=== PATIENT | male | born 1995 | race Caucasian/White ===

== ENCOUNTER 2022-09-25 21:10 | Outpatient (CLI) | payer OTHER, SELFPAY | END 2022-09-25 21:11 | disposition home or self-care (01) | PROVIDERS: Visit Provider Internal Medicine | DX: G47.33 Obstructive sleep apnea (adult) (pediatric) (principal) | CPT/HCPCS: 95811 ==

== ENCOUNTER 2023-07-11 09:05 | Outpatient (CLI) | payer OTHER, SELFPAY | END 2023-07-11 09:06 | disposition home or self-care (01) | PROVIDERS: PCP Internal Medicine; Visit Provider Internal Medicine | DX: I10 Essential (primary) hypertension (principal) | CPT/HCPCS: 80053; 80061; 84443 ==

== ENCOUNTER 2024-04-16 10:08 | Outpatient (CLI) | payer OTHER, SELFPAY ==
--- OUTSIDE RECORDS SUMMARY | 2024-04-16 10:11 | XMS_ITS | Clinical Summary ---
Author Organization [employer] [facility] Address [place], [place] [address] Care Team Providers Care Turnstile Collector Name Role Phone Pcp, No Primary Care Provider Unavailabl e Allergies Active Allergy Reactions Criticality Noted Date Comments Bee Venom Protein (Honey Bee) Edema 2022 Medications Medication Sig Dispensed Refills Start Date End Date Status durable medical equipment (DME)Indications:Hyp ertension Blood pressure cuff and machine. 1 Each 08/04/2022 Active lisinopriL (PRINIVIL; ZESTRIL) 10 mg tabletIndications:Hy pertension TAKE 1 TABLET(10 MG) BY MOUTH EVERY DAY 30 Tablet 10/03/2022 Active CPAPIndications:QUYEN (obstructive sleep apnea) CPAP machine for home use at pressure 14 cmw, full face mask x1/3month with a full face cushion x1/mo 1 Each 11 10/04/2022 Active overnight oximetryIndications: QUYEN (obstructive sleep apnea),Nocturnal hypoxemia For home use. On Room Air yes; On Oxygen no if yes @LPM; On CPAP yes; On BiPAP no 1 Each 10/04/2022 Active Active Problems Problem Noted Date Diagnosed Date QUYEN 08/24/2022 AHi- 40 10/04/2022 Nocturnal hypoxemia 10/04/2022 Morbid obesity with BMI of 50.0-59.9, adult 07/13 Hypertension 08/04/2022 Immunizations Name Administration Dates Next Due COVID-19 vaccine ([employer] NTech 30mcg/0.3mL) 12YO+ BIVALENT PF, MDV 08/04/2022 Family History Medical History Relation Name Comments Hypertension Father Hypertension Mother Relation Name Status Comments Father Mother Social History Tobacco Use Types Packs/Day Years Used Date Smoking Tobacco: Former Cigarettes 0.5 12 2011 Passive Smoke Exposure: Never Smokeless Tobacco: Never Tobacco Cessation:Counseling Given: Not Answered Alcohol Use Standard Drinks/Week Comments Yes 0 (1 standard drink = 0.6 oz pur e alcohol) daily, rum PHQ-2 Answer Date Recorded PHQ-2 TOTAL SCORE 2 08/04/2022 Social Connections Answer Date Recorded Frequency of Communication with Friends and Fami ly Not on file 08/04/2022 Sex and Gender Information Value Date Recorded Sex Assigned at Not on file Gender Identity Not on file Sexual Orientation Not on file Obstetrics History Last Filed Vital Signs Vital Sign Reading Time Taken Comments Blood Pressure 147/90 08/04/2022 11:22 AM MEDICAL AUDITOR Pulse 90 08/04/2022 11:17 AM MEDICAL AUDITOR Temperature - - Respiratory Rate - - Oxygen Saturation 95% 08/04/2022 11: 17 AM MEDICAL AUDITOR Inhaled Oxygen Concentration - - Weight 216.2 kg (476 lb 9.6 oz) 023 11:17 AM MEDICAL AUDITOR Height 196.5 cm (6' 5.36) 08/04/2022 1 1:17 AM MEDICAL AUDITOR Body Mass Index 55.99 08/04/2022 11:17 AM MEDICAL AUDITOR Plan of Treatment Health Maintenance Due Date Last Done Comments Tdap 2004 HIV for age 15-65 2008 Hepatitis C screening for age 18-79 2011 Tetanus booster 2013 BMI (ht and wt on same day) for age 18+ 08/04/2023 08/04/2022 Depression screening for age 12+ 08/04/2023 08/04/2022 COVID-19 vaccine series (2023- season) 2024 08/04/2022, 05/16/2021, 10/19/2020, Additional history exists Influenza for age 9-49 02/10/2024 Pneumococcal series for age 6-64 Aged Out No longer eligible based on patient's age to complete this topic Care Teams Turnstile Collector Relationship Specialty Start Date End Date Pcp, No . PCP - General 08/04/22
== END 2024-04-16 10:09 | disposition home or self-care (01) ==
PROVIDERS: PCP Internal Medicine; Visit Provider Internal Medicine
DX: I10 Essential (primary) hypertension (principal); E66.9 Obesity, unspecified; F41.9 Anxiety disorder, unspecified; R06.02 Shortness of breath
CPT/HCPCS: 80053; 84484; 85379